=== PATIENT | female | born 1985 | race Caucasian/White ===

== ENCOUNTER → 2016-07-01 | Outpatient (CLI) | payer OTHER ==
[~2016-07-01] MED LIST: BUPIVACAINE/EPINEPHRINE 0.5% MPF 1:200,000 30 ML VIAL ONE; CLON0.5T3 PO; DICL-201 PO; HYDR-5688 PO; LEVO75TA5 PO; PRED20TA PO; VENL75CA PO
[2016-07-01 12:30] LABS: BLOOD UREA NITROGEN 8 mg/dl (7-18); BUN/CREATININE RATIO 11.1 (10-20); CALCIUM 8.6 mg/dl (8.5-10.1); CARBON DIOXIDE 29 mmol/L (21-32); CHLORIDE 100 mmol/L (98-107); CREATININE 0.71 mg/dl (0.60-1.20); GLUCOSE 156 mg/dl (70-99); POTASSIUM 3.9 mmol/L (3.5-5.1); SODIUM 137 mmol/L (136-145)
[2016-07-01 12:45] LABS: HEMATOCRIT 29.8 % (37-47); MEAN CELL VOLUME 67.7 fL (80-100); MEAN CORPUSCULAR HEMOGLOBIN 18.9 pg (25-34); MEAN CORPUSCULAR HGB CONC 27.9 g/dl (32-36); MEAN PLATELET VOLUME 8.8 fL (7.4-10.4); PLATELET COUNT 222 K/uL (130-400); WHITE BLOOD COUNT 8.38 K/uL (4.8-10.8)
[2016-07-01 12:50] LABS: BASO % 0.6 %; BASO ABS # 0.05 K/uL (0-0.2); COMPLETE YES; EOS % 1.4 %; HYPOCHROMIA PRESENT; IG% 0.4 %; LYMPH ABS # 2.68 K/uL (1.2-3.4); MICROCYTOSIS PRESENT; MONO % 5.6 %
== END | disposition home or self-care (01) ==
LOC: C.CPL 11:33
PROVIDERS: ATTEND Orthopaedic Surgery
DX: Z01.810 Encounter for preprocedural cardiovascular examination (principal); Z01.812 Encounter for preprocedural laboratory examination; G56.03 Carpal tunnel syndrome, bilateral upper limbs

== ENCOUNTER 2016-07-18 04:58 | Day surgery (SDC) | payer OTHER ==
[2016-07-09 12:32] VITALS: BMI 47.0
--- NOTE | 2016-07-17 08:02 | HISTORY & PHYSICAL EXAMINATION ---
DATE OF ADMISSION: 07/18/2016 CHIEF COMPLAINT: Carpal tunnel syndrome of the left wrist. HISTORY OF PRESENT ILLNESS: Rena is a pleasant 31-year-old right hand dominant female who has been having bilateral hand pain and numbness for about a year, her left is significantly worse than her right. She has got an EMG study which showed bilateral carpal tunnel syndrome, left worse than right. After failing extensive conservative treatment, she has elected to undergo an open carpal tunnel release. PAST MEDICAL AND SURGICAL HISTORY: Significant for thyroid disease and tubal ligation. ALLERGIES: INCLUDE ASPIRIN AND BACTRIM. MEDICATIONS: Include Synthroid, Klonopin, Effexor, and anti-inflammatories. FAMILY HISTORY: Noncontributory. SOCIAL HISTORY: She is single, never drinks. She works at [employer]. REVIEW OF SYSTEMS: She complains of bilateral hand pain and numbness, left worse than right. All other pertinent review of systems is negative. PHYSICAL EXAMINATION: GENERAL: She is awake, alert and oriented x3. She is in no apparent distress. She is very pleasant. HEENT: Pupils are equal, round and reactive to light. Extraocular motion intact. Oral mucosa is pink and moist. HEART: Regular rate per radial pulse. LUNGS: Pallavi symmetrically bilaterally with no audible breath sounds. ABDOMEN: Soft, nontender, nondistended. MUSCULOSKELETAL: On physical examination of her left hand, she has good flexion and extension of the wrist. She has a very positive Tinel and Phalen's test. She does have some numbness along the median nerve distribution of the hand. IMAGING: EMG study does show carpal tunnel syndrome -- bilateral wrists, left worse than right. IMPRESSION: Carpal tunnel syndrome of the left wrist. PLAN: We will proceed with an open left carpal tunnel release. Postoperatively, she will be placed in a soft compressive dressing and discharged to home on oral pain medications.
[~2016-07-18] VITALS: Ht 162.6 cm; Wt 125.0 kg
[~2016-07-18 04:58] MED LIST changes: -BUPIVACAINE/EPINEPHRINE 0.5% MPF 1:200,000 30 ML VIAL ONE; -HYDR-5688 PO
[2016-07-18 05:35] VITALS: BP 126/62; PULSE 80; TEMP 37; O2SAT 97; Ht 162.6 cm; Wt 125.0 kg
[2016-07-18] MEDS ORDERED: FAMOTIDINE 20 MG TAB PO SCH (06:00)
[2016-07-18] MEDS ORDERED: ACETAMINOPHEN 500 MG TAB PO SCH (06:00)
[2016-07-18] MEDS ORDERED: LACTATED RINGER'S 1000ML IV SCH (06:00)
[2016-07-18] MEDS ORDERED: LACTATED RINGER'S 500 ML IV SCH (06:00)
[2016-07-18] MEDS ORDERED: CEFAZOLIN 3000 MG/65 ML D5W 65 ML IV SCH (06:00)
[2016-07-18] MEDS ORDERED: PROPOFOL IV EMULSION 10 MG/ML 20 ML VIAL IV ONE (06:24)
[2016-07-18] MEDS ORDERED: LIDOCAINE HCL 2% 2 ML VIAL (20MG/ML) ONE (06:24)
[2016-07-18] MEDS ORDERED: MIDAZOLAM HCL 1 MG/ML 2ML VIAL ONE (06:24)
[2016-07-18] MEDS ORDERED: FENTANYL CITRATE INJ 50 MCG/1 ML 2 ML VIAL ONE (06:24)
--- NOTE | 2016-07-18 06:31 | History & Physical Bridge Note ---
H&P Re-Evaluation Bridge Note: I have examined the patient, reviewed the History & Physical and in the interval since the performance of the History & Physical I have noted the following changes of clinical significance: No changes noted
[2016-07-18] MEDS ORDERED: MIX: 0.5% BUPIVICAINE 20ML/1% LIDO 20ML INJ ONE (07:27)
[2016-07-18] MEDS ORDERED: HYDR-5688 PO (07:35)
[2016-07-18] MEDS ORDERED: SODIUM CHLORIDE 0.9% 1000ML 1,000 ML IV SCH (07:38)
--- NOTE | 2016-07-18 07:38 | Discharge Instructions ---
Discharge Instructions Admission Reason for Admission: Left Wrist Carpal Tunnel Syndrome, Hand Pain Discharge Discharge Diagnosis / Problem: SAME ABOVE Discharge Goals Goal(s): Decrease discomfort, Improve function Activity Recommendations Activity Limitations: per Instructions/Follow-up section Lifting Limitations: no more than 5 pounds Shower/Bathe: may shower/bathe in 3 days (MAY REMOVE DRESSING IN 5 DAYS ) . Instructions / Follow-Up Instructions / Follow-Up MEDICATIONS: * Resume previous medications unless instructed otherwise by your surgeon. * Always take pain medication on a full stomach or with food to avoid upset stomach. * Do not drink alcohol or drive while taking narcotics. * Ibuprofen or Tylenol may be taken if narcotic not needed. SPECIAL CARE INSTRUCTIONS: __ None _X_ Keep extremity elevated and iced x 48 hours; apply ice 20-30 minutes 8-10 times/day. May remove at night. __ Sling __24 hrs/day __ Remove at night __ Shoulder Immobilizer __ 24 hrs/day __ Remove at night _X_ Dressing __ Maintain until seen in office, may shower with plastic over site _X_ Remove dressings in 5 DAYS. MAY SHOWER SOONER IF COVERED WITH PLASTIC BAG __ Cover incisions with band-aids after showering __ Do not remove steri-strips Call physician if chills or temperature rises above 102 degrees or pain unrelieved by prescribed pain medications at . . Current Hospital Diet Patient's current hospital diet: Discharge Diet Recommended Diet: Regular Diet Fluid Restriction: None Procedures Procedures Performed: Left Carpal Tunnel Release Pending Studies Studies pending at discharge: no Work Instructions Return To Work: after follow-up Lifting Limitations: NO LIFTING MORE THAN 5 POUNDS WITH LEFT ARM. NO HEAVY GRIPPING Medical Emergencies . Who to Call and When: Medical Emergencies: If at any time you feel your situation is an emergency, please call 911 immediately. . Non-Emergent Contact Non-Emergency issues call your: Primary Care Provider Call Non-Emergent contact if: you have a fever, temperature is above 101.5 . "Provider Documentation" section prepared by Miguel De Leon. VTE Core Measure Inpt VTE Proph given/why not?: Treatment not indicated
--- NOTE | 2016-07-18 07:39 | [facility] Post Operative Brief Note ---
Immediate Operative Summary Operative Date Jul 18, 2016. Pre-Operative Diagnosis Carpal tunnel syndrome of the left wrist Post-Operative Diagnosis Same as preoperative diagnosis Procedure(s) Performed Left Carpal Tunnel Release Surgeon Dr. Del Snow Retrofit Installer Surgeon(s) Miguel De Leon PA-C Estimated Blood Loss 3 mL Findings as above Specimens No pathology specimens per surgeon Complication(s) None Disposition Recovery Room / PACU
[2016-07-18 07:40] VITALS: BP 104/55; PULSE 76; TEMP 36.8; O2SAT 97
[2016-07-18] MEDS ORDERED: HYDROCODONE/ACETAMOPHEN 5/325MG TAB PO PRN ×2 (07:45)
[2016-07-18] MEDS ORDERED: ONDANSETRON INJ 2 MG/ML 2 ML VIAL IV PRN (07:45)
--- NOTE | 2016-07-18 07:47 | OPERATIVE REPORT ---
DATE OF OPERATION: 07/18/2016 PREOPERATIVE DIAGNOSIS: Carpal tunnel syndrome of the left wrist. POSTOPERATIVE DIAGNOSIS: Same. PROCEDURE: Open left carpal tunnel release. SURGEON: Dr. Del Snow. BEHAVIORAL HEALTH SPECIALIST: Yoav De Leon PA-C, whose assistance was necessary for positioning of the hand and helping with instrumentation. ANESTHESIA: Local with sedation. COMPLICATION: None. CONDITION: Stable to PACU. INDICATIONS: Rena is a pleasant 31-year-old female who presented to my office with numbness in her left hand. EMG study showed carpal tunnel syndrome. After failing conservative treatment, she elected to undergo an open release. On 07/18/2016, she arrived at [facility] for the above procedure. She was seen in the preoperative holding area and the operative extremity was identified and signed. She was given a preoperative antibiotic, taken back to the operating room, laid on table in supine position and put under basic sedation. Left wrist was then prepped and draped in sterile fashion. Timeout was done, and the patient and operative extremity was properly identified. A longitudinal incision was made directly over the palmar fascia. Dissection was taken down through the fascia and the transverse carpal ligament was exposed. A knife and tenotomy scissors were used to transect the transverse carpal ligament. Complete release was checked both proximally and distally. The wound was then irrigated and closed with 4-0 nylon sutures in a mattress fashion. She was then placed in a soft dressing and taken to the postanesthesia care unit in stable condition. She tolerated the procedure well. I attest to the content of the Intraoperative Record and any orders documented therein. Any exceptio ns are noted below.
[2016-07-18 08:10] VITALS: BP 112/70; PULSE 75; TEMP 36.8; O2SAT 100
--- NOTE | 2016-07-18 08:36 | Anesthesiology Progress Note ---
Anesthesia Post Op Note Date & Time Jul 18, 2016 at 08:36 Vital Signs Pain Intensity: 0 Vital Signs Past 12 Hours Date Time Temp Pulse Resp B/P Pulse Ox O2 Delivery O2 Flow Rate FiO2 07/18/16 08:10 36.8 75 18 112/70 100 Room Air 07/18/16 07:40 36.8 76 18 104/55 97 Room Air 07/18/16 05:35 37 80 20 126/62 97 Room Air Notes Mental Status: alert / awake / arousable, participated in evaluation Pt Amnestic to Procedure: Yes Nausea / Vomiting: adequately controlled Pain: adequately controlled Airway Patency, RR, SpO2: stable & adequate BP & HR: stable & adequate Hydration State: stable & adequate Anesthetic Complications: no major complications apparent
[2016-07-18] MEDS ORDERED: EpHEDrine SULFATE INJ 50 MG/ML AMP IV PRN (08:45)
[2016-07-18] MEDS ORDERED: FENTANYL CITRATE INJ 50 MCG/1 ML 2 ML VIAL IV PRN (08:45)
[2016-07-18] MEDS ORDERED: ATROPINE SULFATE 0.1 MG/ML 5ML SYR IV PRN (08:45)
== END 2016-07-18 08:20 | disposition home or self-care (01) ==
LOC: C.ACU 04:58
PROVIDERS: ATTEND Orthopaedic Surgery
DX: G56.02 Carpal tunnel syndrome, left upper limb (principal); E07.9 Disorder of thyroid, unspecified; Z98.51 Tubal ligation status; Z88.1 Allergy status to other antibiotic agents; Z88.5 Allergy status to narcotic agent

== ENCOUNTER 2016-08-22 06:19 | Day surgery (SDC) | payer OTHER ==
[2016-08-11 16:05] VITALS: BMI 48.0
--- NOTE | 2016-08-20 17:26 | HISTORY & PHYSICAL EXAMINATION ---
DATE OF ADMISSION: 08/22/2016 CHIEF COMPLAINT: Carpal tunnel syndrome of the right wrist. HISTORY OF PRESENT ILLNESS: Rena is a pleasant 31-year-old right hand dominant female who has been having bilateral hand pain and numbness for about a year. Her left is significantly worse than her right. She had an EMG study, which showed a bilateral carpal tunnel syndrome, left worse than right. She underwent a left open carpal tunnel release about a month ago and she has done very well with that and she elected to proceed with a right carpal tunnel release. PAST MEDICAL HISTORY: Significant for hypothyroidism, tubal ligation and a left open carpal tunnel release. ALLERGIES: ASPIRIN AND BACTRIM. MEDICATIONS: Include Synthroid, Klonopin, Effexor, and anti-inflammatories. FAMILY HISTORY: Noncontributory. SOCIAL HISTORY: She is single, never drinks and works at [employer]. REVIEW OF SYSTEMS: She complains of right hand paresthesias. All other pertinent review of systems is negative. PHYSICAL EXAMINATION: GENERAL: She is awake, alert and oriented x3. She is in no apparent distress. She is very pleasant. HEENT: Pupils are equal, round and reactive to light. Extraocular motions intact. Oral mucosa is pink and moist. HEART: Regular rate per radial pulse. LUNGS: Pallavi symmetrically bilaterally with no audible breath sounds. ABDOMEN: Soft, nontender, and nondistended. MUSCULOSKELETAL: On physical examination of the right hand, she has good flexion and extension of the wrist. She has very positive Tinel's and Phalen's test. She does have some numbness along the median nerve distribution of the hand. EMG study shows carpal tunnel syndrome of the bilateral wrists, left worse than right. IMPRESSION: Carpal tunnel syndrome of the right wrist. PLAN: We will proceed with an open right carpal tunnel release. Postoperatively, she will be placed in a soft compressive dressing and discharged to home on oral pain medications.
[~2016-08-22] VITALS: Ht 162.6 cm; Wt 127.3 kg
[~2016-08-22 06:19] MED LIST changes: +ACETAMINOPHEN 500 MG TAB PO SCH; +CEFAZOLIN 3000 MG/65 ML D5W 65 ML IV SCH; +FAMOTIDINE 20 MG TAB PO SCH; +LACTATED RINGER'S 1000ML 1,000 ML IV SCH; +LACTATED RINGER'S 1000ML IV SCH; -PRED20TA PO
[2016-08-22 06:44] VITALS: BP 103/54; PULSE 74; TEMP 36.4; O2SAT 98; Ht 162.6 cm; Wt 127.3 kg
[2016-08-22] MEDS ORDERED: MIDAZOLAM HCL 1 MG/ML 2ML VIAL ONE (06:47)
[2016-08-22] MEDS ORDERED: FENTANYL CITRATE INJ 50 MCG/1 ML 2 ML VIAL ONE (06:47)
[2016-08-22] MEDS ORDERED: LIDOCAINE HCL 2% 2 ML VIAL (20MG/ML) ONE (06:47)
[2016-08-22] MEDS ORDERED: PROPOFOL IV EMULSION 10 MG/ML 20 ML VIAL IV ONE (06:47)
[2016-08-22] MEDS ORDERED: ONDANSETRON INJ 2 MG/ML 2 ML VIAL IV PRN ×2 (07:00→10:30)
[2016-08-22] MEDS ORDERED: EpHEDrine SULFATE INJ 50 MG/ML AMP IV PRN (07:00)
[2016-08-22] MEDS ORDERED: FENTANYL CITRATE INJ 50 MCG/1 ML 2 ML VIAL IV PRN (07:00)
[2016-08-22] MEDS ORDERED: ATROPINE SULFATE 0.1 MG/ML 5ML SYR IV PRN (07:00)
[2016-08-22] MEDS ORDERED: LIDOCAINE/EPINEPHRINE 1% 20 ML VIAL ONE (08:49)
[2016-08-22] MEDS ORDERED: HYDR-5688 PO (10:22)
[2016-08-22] MEDS ORDERED: SODIUM CHLORIDE 0.9% 1000ML 1,000 ML IV SCH (10:27)
--- NOTE | 2016-08-22 10:27 | Discharge Instructions ---
Discharge Instructions Date of Service Aug 22, 2016. Admission Reason for Admission: Right Wrist Carpal Tunnel Syndrome Discharge Discharge Diagnosis / Problem: SAME ABOVE Discharge Goals Goal(s): Decrease discomfort, Improve function Activity Recommendations Activity Limitations: as noted below Lifting Limitations: until after follow-up appointment Exercise/Sports Limitations: until after follow-up appointment . Instructions / Follow-Up Instructions / Follow-Up MEDICATIONS: * Resume previous medications unless instructed otherwise by your surgeon. * Always take pain medication on a full stomach or with food to avoid upset stomach. * Do not drink alcohol or drive while taking narcotics. * Ibuprofen or Tylenol may be taken if narcotic not needed. SPECIAL CARE INSTRUCTIONS: __ None _X_ Keep extremity elevated and iced x 48 hours; apply ice 20-30 minutes 8-10 times/day. May remove at night. __ Sling __24 hrs/day __ Remove at night __ Shoulder Immobilizer __ 24 hrs/day __ Remove at night _X_ Dressing __ Maintain until seen in office, may shower with plastic over site _X_ Remove dressings in 5 DAYS. MAY SHOWER SOONER IF COVERED WITH PLASTIC BAG _X_ Cover incisions with band-aids after showering __ Do not remove steri-strips Call physician if chills or temperature rises above 102 degrees or pain unrelieved by prescribed pain medications at . . Current Hospital Diet Patient's current hospital diet: Discharge Diet Recommended Diet: Regular Diet Fluid Restriction: None Procedures Procedures Performed: Right carpal tunnel release Pending Studies Studies pending at discharge: no Work Instructions Return To Work: after follow-up Lifting Limitations: no more than 10 pounds Medical Emergencies . Who to Call and When: Medical Emergencies: If at any time you feel your situation is an emergency, please call 911 immediately. . Non-Emergent Contact Non-Emergency issues call your: Primary Care Provider Call Non-Emergent contact if: you have a fever, temperature is above 101.5 . "Provider Documentation" section prepared by Miguel De Leon. VTE Core Measure Inpt VTE Proph given/why not?: Treatment not indicated
[2016-08-22] MEDS ORDERED: HYDROCODONE/ACETAMOPHEN 5/325MG TAB PO PRN ×2 (10:30)
--- NOTE | 2016-08-22 10:44 | [facility] Post Operative Brief Note ---
Immediate Operative Summary Operative Date Aug 22, 2016. Pre-Operative Diagnosis Carpal tunnel syndrome right wrist Post-Operative Diagnosis same as preop Procedure(s) Performed Right carpal tunnel release Surgeon Dr. Del Snow Testing Lead Surgeon(s) none Estimated Blood Loss 1 ml Findings as above Specimens none Complication(s) None Disposition Recovery Room / PACU
[2016-08-22 10:45] VITALS: BP 114/53; PULSE 80; TEMP 36.6; O2SAT 96
--- NOTE | 2016-08-22 10:45 | Anesthesiology Progress Note ---
Anesthesia Post Op Note Date & Time Aug 22, 2016 at 10:45 Vital Signs Pain Intensity: 0 Vital Signs Past 12 Hours Date Time Temp Pulse Resp B/P Pulse Ox O2 Delivery O2 Flow Rate FiO2 08/22/16 10:36 36.8 08/22/16 10:35 111/66 08/22/16 10:31 69 18 08/22/16 10:31 69 18 100 08/22/16 10:30 113/63 08/22/16 10:26 70 14 100 08/22/16 10:26 69 14 08/22/16 10:25 107/65 08/22/16 10:22 116/60 08/22/16 10:21 71 13 08/22/16 10:21 76 13 08/22/16 10:16 36.4 73 16 116/60 100 Mask 10 08/22/16 06:44 36.4 74 20 103/54 98 Room Air Notes Mental Status: alert / awake / arousable, participated in evaluation Pt Amnestic to Procedure: Yes Nausea / Vomiting: adequately controlled Pain: adequately controlled Airway Patency, RR, SpO2: stable & adequate BP & HR: stable & adequate Hydration State: stable & adequate Anesthetic Complications: no major complications apparent
--- NOTE | 2016-08-22 11:13 | OPERATIVE REPORT ---
DATE OF OPERATION: 08/22/2016 PREOPERATIVE DIAGNOSIS: Carpal tunnel syndrome of the right wrist. POSTOPERATIVE DIAGNOSIS: Same. PROCEDURE: Open right carpal tunnel release. SURGEON: Dr. Del Snow. ASSISTANTS: None. ANESTHESIA: Local with sedation. COMPLICATIONS: None. CONDITION: Stable to PACU. INDICATIONS: Rena is a pleasant 31-year-old female who presented to my office with bilateral compressive neuropathy of the wrist. I did a left carpal tunnel release on her about a month ago and she has done well with that. She elected to undergo a right carpal tunnel release. OPERATION AND FINDINGS: On 08/22/2016 she arrived at [facility] for the above procedure. She was seen in the preoperative holding area and the operative extremity was identified and signed. She was given a preoperative antibiotic, taken back to the operating room, laid on the table in supine position and given basic sedation. The right wrist was then prepped and draped in sterile fashion. Time-out was done and the patient and operative extremity was properly identified. A longitudinal incision was made directly over the transverse carpal ligament. Dissection was taken down through the palmar fascia and the ligament was released. Complete resection was checked both proximally and distally. The median nerve was easily identified and freed up. The wound was then irrigated and tourniquet was deflated. Hemostasis was controlled and the wound was closed with 4-0 nylon suture in a mattress fashion. She was then placed in a soft compressive dressing and taken to the postanesthesia care unit in stable condition. She tolerated the procedure well. I attest to the content of the Intraoperative Record and any orders documented therein. Any exceptio ns are noted below.
[2016-08-22 11:15] VITALS: BP 110/50; PULSE 69; O2SAT 98
[2016-08-22 11:45] VITALS: BP 103/46; PULSE 66; TEMP 36.7; O2SAT 97
== END 2016-08-22 12:20 | disposition home or self-care (01) ==
LOC: C.ACU 06:19
PROVIDERS: ATTEND Orthopaedic Surgery
DX: G56.01 Carpal tunnel syndrome, right upper limb (principal); E03.9 Hypothyroidism, unspecified; Z98.51 Tubal ligation status; Z79.82 Long term (current) use of aspirin